=== PATIENT | female | born 1940 | race Caucasian/White ===

== ENCOUNTER 2016-10-20 12:55 | Outpatient (RCR) | payer OTHER ==
[~2016-10-20 12:55] MED LIST: ALLEGRA60 MG PO; ASTELIN137 MCG/0. NS; BENADRYL ALLERG25 MG PO; BENADRYL25 M1 PO; CEPHALEXIN500 MG PO; COZAAR50 MG PO; GLUCOPHAGE500 MG PO; HYDROCHLOROTHIA25 MG PO; METOPROLOL TART50 MG PO; PATANOL1 DROP OD; PRAVASTATIN SOD80 MG PO; RESTORIL7.5 MG PO
== END 2016-11-03 | disposition home or self-care (01) ==
LOC: PTY 12:55
DX: M12.9 Arthropathy, unspecified (principal); E11.9 Type 2 diabetes mellitus without complications; Z91.81 History of falling; M25.562 Pain in left knee; R53.1 Weakness; R03.0 Elevated blood-pressure reading, without diagnosis of hypertension; M17.0 Bilateral primary osteoarthritis of knee; R26.2 Difficulty in walking, not elsewhere classified
CPT/HCPCS: 97032; 97035; 97110; G0283

== ENCOUNTER 2017-06-30 10:00 | Outpatient (RCR) | payer OTHER | END 2017-07-03 | disposition home or self-care (01) | LOC: PTY 10:00 | DX: M12.9 Arthropathy, unspecified (principal); E11.9 Type 2 diabetes mellitus without complications; M19.90 Unspecified osteoarthritis, unspecified site | CPT/HCPCS: 97110; 97161; G0283 ==

== ENCOUNTER 2017-08-02 10:00 | Outpatient (RCR) | payer OTHER | END 2017-08-03 | disposition home or self-care (01) | LOC: PTY 10:00 | DX: S83.8X1S Sprain of other specified parts of right knee, sequela (principal); R53.1 Weakness; E11.9 Type 2 diabetes mellitus without complications; M19.90 Unspecified osteoarthritis, unspecified site | CPT/HCPCS: 97110; 97116; G0283 ==

== ENCOUNTER 2017-08-23 10:00 | Outpatient (RCR) | payer OTHER | END 2017-09-02 | disposition home or self-care (01) | LOC: PTY 10:00 | DX: S83.8X1S Sprain of other specified parts of right knee, sequela (principal); Z96.651 Presence of right artificial knee joint; Z96.652 Presence of left artificial knee joint; E11.9 Type 2 diabetes mellitus without complications | CPT/HCPCS: 97110; 97116; G0283 ==

== ENCOUNTER 2017-10-27 10:00 | Outpatient (RCR) | payer OTHER | END 2017-11-03 | disposition home or self-care (01) | LOC: PTY 10:00 | PROVIDERS: ATTEND Internal Medicine | DX: M54.2 Cervicalgia (principal); Z96.651 Presence of right artificial knee joint; S83.8X1S Sprain of other specified parts of right knee, sequela | CPT/HCPCS: 97110; 97116; G0283 ==